=== PATIENT | female | born 1980 | race Caucasian/White ===

== ENCOUNTER 2024-11-18 08:17 | Day surgery (SDC) | payer BC ==
[2024-11-14 08:50] VITALS: BMI 26.4
[2024-11-14 09:13] LABS: Hematocrit 33.2 % (34.9-44.5); Hemoglobin 9.9 g/dL (12.0-15.5); Mean Corpuscular Hemoglobin 22.9 pg (27.0-33.0); Mean Corpuscular Volume 76.7 fL (81.6-98.3); Platelet Count 254 10x3/uL (150-450); Red Blood Cell (RBC) Count 4.33 10x6/uL (3.90-5.03); White Blood Cell (WBC) Count 4.09 10x3/uL (3.5-10.5)
[2024-11-14 09:21] LABS: BHCG - Serum Negative (NEGATIVE); Pregs Control Background? CLEAR/WHITE (CLR/WHITE); Pregs Control Bar Appear? YES (CONTROL BAR)
[2024-11-18] MEDS ORDERED: PROPOFOL 20 ML ONE (08:24)
[2024-11-18] MEDS ORDERED: Ondansetron PF 4 MG/2 ML Vial ONE ×2 (08:24→12:48)
[2024-11-18] MEDS ORDERED: Rocuronium Bromide 10 MG/ML (10ML VIAL) ONE (08:24)
[2024-11-18] MEDS ORDERED: Bupivacaine HCl 0.5%/Epinephrine 1:200,000/PF 30 ml Vial ONE (08:50)
[2024-11-18] MEDS ORDERED: Gabapentin 300 MG CAP ONE (08:51)
[2024-11-18] MEDS ORDERED: Famotidine/PF 20 mg/2ml Vial ONE (08:52)
[2024-11-18] MEDS ORDERED: Scopolamine 1 mg/72 hour Patch ONE (09:01)
[2024-11-18] MEDS ORDERED: HYDROcodone/Acetaminophen 5/325 mg Tablet ONE (14:21)
== END 2024-11-18 14:50 | disposition home or self-care (01) ==
LOC: CSHSDC 08:17
PROVIDERS: ATTEND Obstetrics & Gynecology
DX: N88.8 Other specified noninflammatory disorders of cervix uteri (principal); E06.3 Autoimmune thyroiditis; Z98.51 Tubal ligation status; Z87.59 Personal history of other complications of pregnancy, childbirth and the puerperium; Z88.1 Allergy status to other antibiotic agents; Z79.890 Hormone replacement therapy
CPT/HCPCS: 36415; 84703; 85027; 86850; 86900; 86901; 88307; J1100; J1308; J2250; J2405; J2550; J2704; J3010; J3490; S2900